=== PATIENT | female | born 1960 | race Caucasian/White ===

== ENCOUNTER 2017-11-30 21:28 | Emergency (ER) | payer SELFPAY, OTHER, MEDICAID ==
[2017-12-01 00:26] LABS: URINE BLOOD (Dip) POC 3+ (NEGATIVE); URINE GLUCOSE (Dip) POC Negative (NEGATIVE); URINE KETONES (Dip) POC Negative (NEGATIVE); URINE LEUKOCYTE EST (Dip) POC 1+ (NEGATIVE); URINE NITRITE (Dip) POC Negative (NEGATIVE); URINE TOTAL PROTEIN POC 3+ (NEGATIVE)
[2017-12-01] MEDS: LIDOCAINE 1% (MDV) 10 ML INJ INJ (01:12)
[2017-12-01] MEDS: CEFTRIAXONE 1 GM INJ IM (01:12)
== END 2017-12-01 01:34 | disposition home or self-care (01) ==
LOC: FTE 21:28
DX: N30.00 Acute cystitis without hematuria (principal); I10 Essential (primary) hypertension
CPT/HCPCS: 81003; 96372; 99284-25